=== PATIENT | male | born 2000 | race Caucasian/White ===

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

== ENCOUNTER 2023-01-21 13:47 | Inpatient (IN) ==
--- NOTE | 2023-01-21 14:43 | Emergency Department Note ---
Impression & Plan Suicidal ideation ED Provider Note HISTORY OF PRESENT ILLNESS: Patient is a 22-year-old male presenting with suicidal ideation. Police were called to the patient's house today after he got in a verbal altercation with his mother and reportedly stated that he was going to kill himself and went up to his room. He did have a knife with him. On discussion with the patient, he reports that he got into a verbal altercation with his mother who constantly berates him. He states that the knife was his but he was not planning to hurt himself with it. He denies any homicidal ideation. He reports he has not attempted suicide since he was a teenager. He states that he has numerous social stressors, including being the financial support for his mother and multiple siblings. He states that 2 weeks ago he restarted a low-dose Lexapro until he can be seen by psychiatry with [facility]. He states that his appointment is not until middle of February. He states that his social situation and financial issues have been a stressor for him. He states that he goes through phases in which he has thoughts of wanting to commit suicide, but he denies any plan at this time ROS: as above PHYSICAL EXAM: Constitutional: Patient appears in no acute distress. HENT: Head: Normocephalic and atraumatic. Mouth/Throat: Mucous membranes moist. Neck: Trachea midline. Neck supple. Psychiatric: Appropriate mood and affect for situation. Neurological: Alert and keenly responsive. CN II-XII grossly intact, moving all extremities equally and fully. MDM: - Vitals signs stable. - History obtained via patient. Patient presents with suicidal ideation. Police were called to the patient's house today after he got in a verbal altercation with his mother and reportedly stated he was going to kill himself. Patient states he went to his room and had a pocket knife, but denies any plan to hurt himself. He states that he has multiple stressors at home, including financial stressors and familial stressors. He denies any plan to hurt himself. Denies any homicidal ideation. He states that he just got really overwhelmed today. - Chronic conditions affecting care: anxiety/depression - Differential diagnoses include, but are not limited to: Electrolyte abnormality; UTI; intoxication - External medical records reviewed. - Laboratory workup interpreted by myself showed normal WBC; stable electrolytes - UA negative for infection - UDS positive for THC - Patient was seen in conjunction with the behavioral health youth career specialist. Patient states that he has waxing and waning episodes of suicidal ideation. However, he reports he has no plan to hurt himself. He states he does not want inpatient treatment at this time. He plans to go and stay with a friend to help eliminate himself from the stressful situation at home. He states that he had no plan to hurt himself with a pocket knife. He states that he always carries a pocket knife at baseline. He is speaking in clear complete sentences and does show decision-making capacity at this time. He does not appear to be under the influence of any drugs or alcohol. He does show insight into his pathology and is forward thinking. Thought processes linear and goal-directed. He is planning to see a psychiatrist through [facility] in about 1 month. He states that he had called [facility] to try to get set up for an appointment, but the appointment could not be until next month. In the interim, they started him on a low-dose of Lexapro. He does feel that this medication needs to be increased, but does not want to come in to inpatient psychiatry to have this done. He understands the risks of going home and states that he plans to go home with a friend until the situation at home "cools off." He filled out a safety plan that included his friend with the behavioral health youth career specialist. However, patient's friend presented and encouraged the patient to sign in for inpatient care, given his stressors and symptoms. Patient was agreeable to signing a 201 after discussion with the behavioral health youth career specialist and with friend. - Patient did sign a 201. He was excepted to [address] [place] [address] inpatient psychiatric unit for further evaluation and management. While awaiting bed assignment on [address] the patient was starting to feel very anxious. He was given 5 mg of p.o. Zyprexa ASSESSMENT AND PLAN: Diagnosis: Suicidal ideation Plan: Admit to [address] [place] [address] Past Med/Surg History Social History Smoking Status: Current every day smoker Tobacco Type: E-cigarettes / Vaping Preferred Language: Polish Gender Identity: Male Allergies Allergies Allergy/AdvReac Type Severity Reaction Status Date / Time [facility] Allergy Intermediate SEE NOTE Uncoded 01/21/23 16:34 Home Meds Home Medications Medication Instructions Recorded Confirmed escitalopram oxalate 5 mg tablet 5 mg PO QAM 01/21/23 01/21/23 Results & Data (ED) Vital Signs Vital Signs - 24 hr 01/21/23 14:03 01/21/23 15:36 01/21/23 20:32 Temperature 36.4 C 36.8 C Temperature Source Oral Oral Pulse Rate 60 Pulse Rate [Right Finger] 70 72 Pulse Rhythm [Right Finger] Regular Pulse Strength [Right Finger] Normal Respiratory Rate 18 16 17 Respiratory Effort / Characteristics Non-Labored Spontaneous Non-Labored Spontaneous Respiratory Depth Normal Normal Respiratory Pattern Regular Regular Blood Pressure 143/80 Blood Pressure [Right Arm] 136/83 142/78 H Blood Pressure Mean 101 Blood Pressure Mean [Right Arm] 100 99 Blood Pressure Position [Right Arm] Sitting Sitting Pulse Oximetry 98 97 97 Oxygen Delivery Method Room Air Room Air Room Air Sepsis Recent Fever Within 48 Hours No Sepsis New/Unexplained Change in Mental Status No Sepsis Action Taken by Nursing No Action Required Laboratory Data 01/21/23 14:48 01/21/23 14:48 Lab Results 01/21/23 01/21/23 01/21/23 Range/Units 14:15 14:48 18:46 WBC 9.10 (4.8-10.8) K/ul RBC 5.42 (4.70-6.10) M/uL Hgb 16.0 (14.0-18.0) g/dl Hct 46.2 (42.0-52.0) % MCV 85.2 (80.0-100.0) fL MCH 29.5 (25.0-34.0) pg MCHC 34.6 (32.0-36.0) g/dL RDW Std Deviation 39.8 (36.4-46.3) fL RDW Coeff of Mir 12.9 (11.5-14.5) % Plt Count 263 (130-400) K/uL MPV 10.2 (9.4-12.4) fL Immature Gran % (Auto) 0.3 % Neut % (Auto) 54.7 % Lymph % (Auto) 31.6 % [place] % (Auto) 5.6 % Eos % (Auto) 7.0 % Baso % (Auto) 0.8 % Neut # (Auto) 4.97 (1.40-6.50) K/uL Lymph # (Auto) 2.88 (1.20-3.40) K/uL [place] # (Auto) 0.51 (0.11-0.59) K/uL Eos # (Auto) 0.64 H (0.00-0.50) K/uL Baso # (Auto) 0.07 (0.00-0.20) K/uL Immature Gran # (Auto) 0.03 (0.01-0.20) K/uL Sodium 137 (136-145) mmol/L Potassium 4.2 (3.5-5.1) mmol/L Chloride 106 (98-107) mmol/L Carbon Dioxide 24 (21-32) mmol/L Anion Gap 7 (3-11) BUN 11 (6-23) mg/dl Creatinine 0.80 (0.6-1.4) mg/dl Est Cr Clr Drug Dosing 137.7 ml/min Est GFR ( Amer) 149.0 ml/min Est GFR (Non-Af Amer) 128.6 ml/min BUN/Creatinine Ratio 13.8 (10-20) Glucose 98 (70-99(Fasting)) mg/dl Calcium 9.9 (8.6-10.3) mg/dl Total Bilirubin 0.5 (0.2-1.0) mg/dl AST 20 (13-39) U/L ALT 15 (7-52) U/L Alkaline Phosphatase 54 (34-104) U/L Total Protein 7.5 (6.0-8.3) gm/dl Albumin 4.5 (3.4-5.0) gm/dl Globulin 3.0 (2.5-4.0) gm/dl Albumin/Globulin Ratio 1.5 (0.9-2) TSH 0.661 (0.300-4.500) uIu/ml Urine Color Yellow Urine Appearance Clear (Clear) Urine pH 6.5 (4.5-7.5) Ur Specific [place] 1.017 (1.000-1.030) Urine Protein Negative (Negative) Urine Glucose (UA) Negative (Negative) Urine Ketones Negative (Negative) Urine Blood Negative (Negative) Urine Nitrite Negative (Negative) Urine Bilirubin Negative (Negative) Urine Urobilinogen Negative (Negative) Ur Leukocyte Esterase Negative (Negative) Salicylates < 3.0 L (3.0-30) mg/dl Urine Opiates Screen Neg (Neg) Ur Methadone, Qual Neg (Neg) Acetaminophen < 3 L (10-30) ug/ml Urine Barbiturates Neg (Neg) Ur Phencyclidine (PCP) Neg (Neg) U Amphetamin/Meth Scrn Neg (Neg) MDMA (Ecstasy) Screen Neg (Neg) U Benzodiazepines Scrn Neg (Neg) Ur Cocaine Metabolite Neg (Neg) U Marijuana (THC) Screen Pos H (Neg) Ethyl Alcohol mg/dL < 10.0 (<10.0) mg/dl SARS-CoV-2, RNA, NAAT NEGATIVE (NEGATIVE) Administered Medications Miscellaneous (Remove Nicoderm Patch) 1 each N/A DAILY@0859 NICKOLAS Stop: 02/21/23 08:58 Last Admin: 01/21/23 18:12 Dose: 1 each Documented By: AMY Nicotine (Nicotine 14 Mg/24 Hr Patch) 14 mg TD QAM NICKOLAS Stop: 02/20/23 16:29 Last Admin: 01/21/23 16:42 Dose: 14 mg Documented By: CPB Discontinued Medications Nicotine Polacrilex (Nicotine Polacrilex 2 Mg Gum) 1 piece MT NOW STA Stop: 01/21/23 19:23 Last Admin: 01/21/23 19:28 Dose: 1 piece Documented By: EZEKIEL Discharge Plan Visit Data Chief Complaint: Mental Health Evaluation Stated Complaint: MENTAL HEALTH EVALUATION ED Provider: Ruchi Morales Discharge Problem: Suicidal ideation Patient Disposition: Home - Self-Care Discharge Instructions Monica/Other Patient Handouts: ED Depression Activity Restrictions/Additional Instructions: Your work-up in the emergency department today was negative for any acute pathology. You filled out a safety contract. Please return to the emergency department if you have any further thoughts of wanting to hurt yourself or others, worsening depression, feelings of hopelessness, or any new or worsening symptoms Forms Stand Alone Forms: My [facility], Suicide Prevention Resources, Important Visit Information Prescriptions Prescriptions: No Action escitalopram oxalate 5 mg tablet 5 mg PO QAM Referrals Referrals: PCP,NO [Primary Care Provider] -
[2023-01-21 15:02] LABS: Appearance Urine Clear (Clear); Bilirubin Urine Negative (Negative); Blood Urine Negative (Negative); Color Urine Yellow; Glucose Urine UA Negative (Negative); Ketones Urine Negative (Negative); Leukocyte Esterase Urine Negative (Negative); Nitrite Urine Negative (Negative); Protein Urine Negative (Negative); Specific Gravity Urine 1.017 (1.000-1.030); Urobilinogen Urine Negative (Negative); pH Urine 6.5 (4.5-7.5)
[2023-01-21 15:14] LABS: Basophils # (auto) 0.07 K/uL (0.00-0.20); Basophils % (auto) 0.8 %; Eosinophils # (auto) 0.64 K/uL (0.00-0.50); Hematocrit (blood only) 46.2 % (42.0-52.0); Immature Granulocytes # (auto) 0.03 K/uL (0.01-0.20); Immature Granulocytes % (auto) 0.3 %; Lymphocytes # (auto) 2.88 K/uL (1.20-3.40); Lymphocytes % (auto) 31.6 %; Mean Corpuscular Hemoglobin 29.5 pg (25.0-34.0); Mean Corpuscular Hgb Conc 34.6 g/dL (32.0-36.0); Mean Corpuscular Volume 85.2 fL (80.0-100.0); Mean Platelet Volume 10.2 fL (9.4-12.4); Monocytes # (auto) 0.51 K/uL (0.11-0.59); Monocytes % (auto) 5.6 %; Neutrophils # (auto) 4.97 K/uL (1.40-6.50); Neutrophils % (auto) 54.7 %; Platelet Count 263 K/uL (130-400); RDW Coefficient of Variation 12.9 % (11.5-14.5); RDW Standard Deviation 39.8 fL (36.4-46.3); Red Blood Count 5.42 M/uL (4.70-6.10)
[2023-01-21 15:19] LABS: Albumin Globulin Ratio 1.5 (0.9-2); Albumin Level 4.5 gm/dl (3.4-5.0); BUN Creatinine Ratio 13.8 (10-20); Bilirubin,Total 0.5 mg/dl (0.2-1.0); Calcium 9.9 mg/dl (8.6-10.3); Creatinine Clr Calc Pharmacy 137.7 ml/min; Est GFR (Non-African American) 128.6 ml/min; Potassium 4.2 mmol/L (3.5-5.1); Total Protein 7.5 gm/dl (6.0-8.3)
[2023-01-21 15:21] LABS: Acetaminophen < 3 ug/ml (10-30); Salicylate < 3.0 mg/dl (3.0-30)
[2023-01-21 15:33] LABS: Amphetamines+Metham, Urine Neg (Neg); Barbiturates, Urine Neg (Neg); Benzodiazepine, Urine Neg (Neg); Cocaine, Urine Neg (Neg); MDMA (Ecstacy), Urine Neg (Neg); Marijuana, Urine Pos (Neg); Methadone, Urine Neg (Neg); Opiate, Urine Neg (Neg); Phencyclidine, Urine Neg (Neg)
[2023-01-21 15:35] LABS: Thyroid Stimulating Hormone 0.661 uIu/ml (0.300-4.500)
[2023-01-21] MEDS ORDERED: NICOTINE 14 MG/24 HR PATCH TD SCH (16:30)
[2023-01-21] MEDS ORDERED: NICOTINE POLACRILEX 2 MG GUM MT STA (19:22)
[2023-01-21] MEDS ORDERED: OLANZapine 5 MG TABLET PO STA (21:44)
[2023-01-21] MEDS ORDERED: BISMUTH SUBSALICYLATE LIQD 236 ML PO PRN (23:05)
[2023-01-21] MEDS ORDERED: ACETAMINOPHEN 325 MG TAB PO PRN (23:05)
[2023-01-21] MEDS ORDERED: NICOTINE POLACRILEX 2 MG GUM MT PRN (23:05)
[2023-01-21] MEDS ORDERED: ALUMINUM/MAGNESIUM SUSP 30 ML UDC PO PRN (23:05)
[2023-01-21] MEDS ORDERED: hydrOXYzine HCl 25 MG TAB PO PRN ×2 (23:05)
[2023-01-21] MEDS ORDERED: MAGNESIUM HYDROXIDE SUSP 30 ML UDC PO PRN (23:05)
[2023-01-21] MEDS ORDERED: SODIUM CHLORIDE 0.65% NA SOLN 45 ML (OCEAN) PRN (23:05)
[2023-01-22] MEDS ORDERED: ESCITALOPRAM OXALATE 10 MG TAB PO SCH (09:00)
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
[2023-01-22] MEDS: NICOTINE POLACRILEX 2 MG GUM MT PRN (21:26)
[2023-01-22] MEDS ORDERED: OLANZapine 5 MG TABLET PO SCH (22:00)
[2023-01-23] MEDS ORDERED: ESCITALOPRAM OXALATE 10 MG TAB PO SCH (09:00)
[2023-01-23 09:17] LABS: Chol HDL Ratio 3.5 (0-5)
[2023-01-23 09:41] LABS: Folate (Folic Acid),Ser orPlas 17.71 ng/ml (>5.38)
[2023-01-23 10:34] LABS: Estimated Average Glucose 108 mg/dl; Hemoglobin A1C 5.4 % (4.5-5.6)
[2023-01-23] MEDS: NICOTINE POLACRILEX 2 MG GUM MT PRN ×2 (12:15→14:28)
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
[2023-01-24] MEDS ORDERED: ERGOCALCIFEROL 50,000 UNITS 1250 MCG CAP PO SCH (09:00)
[2023-01-24 23:57] LABS: Marijuana Quant, GCMS Urine 3168 ng/mL (<5)
== END 2023-01-23 16:01 | disposition home or self-care (01) | DRG 885 ==
LOC: EDSEX → ED 13:47 → 3S 21:05 → MERGE 21:05 → 3S 22:14